=== PATIENT | female | born 1960 | race Two or more races ===

== ENCOUNTER 2020-02-10 11:53 | Emergency (ER) | payer OTHER ==
[~2020-02-10] VITALS: Ht 165.1 cm; Wt 104.3 kg
[2020-02-10] MEDS ORDERED: IOHEXOL 350 MG/ML 100ML IJ ONE ×2 (15:11→16:05)
[2020-02-10] MEDS ORDERED: MORPHINE SULFATE 4 MG/ML SYR/VIAL IV ONE (15:15)
[2020-02-10] MEDS ORDERED: ONDANSETRON HCL 4 MG/2 ML VIAL IV ONE (15:15)
[2020-02-10 15:23] LABS: Basophils # (auto) 0.1 10 ^3/uL (0-0.2); Basophils % (auto) 0.3 % (0.0-2.0); Eosinophils # (auto) 0 10 ^3/uL (0-0.8); Eosinophils % (auto) 0.1 % (0.0-7.0); Hematocrit 44.7 % (36.0-46.0); Hemoglobin 14.5 g/dL (12.2-16.2); Lymphocytes # (auto) 1.9 10 ^3/uL (0.4-5.4); Lymphocytes % (auto) 8.9 % (10.0-50.0); Mean Corpuscular Hemoglobin 30.1 pg (28.0-32.0); Mean Corpuscular Hgb Conc. 32.4 g/dL (32.0-36.0); Mean Corpuscular Volume 92.8 fL (80.0-100.0); Monocytes # (auto) 1.6 10 ^3/uL (0-1.3); Monocytes % (auto) 7.3 % (0.0-12.0); Neutrophils # (auto) 17.8 10 ^3/uL (1.6-8.6); Neutrophils % (auto) 83.4 % (37.0-80.0); Platelet Count (auto) 289 10^3/uL (140-450); Red Blood Cells 4.82 10^6/uL (4.0-5.20); Red Cell Distribution Width 13.2 % (11.8-14.3); White Blood Cell 21.3 10^3/uL (4.4-10.8)
[2020-02-10 15:44] LABS: Alanine Aminotransferase 74 U/L (13-56); Albumin 3.8 g/dL (3.4-5.0); Anion Gap 8 (5-15); Aspartate Aminotransferase 85 U/L (15-37); BUN/Creatinine Ratio 34.7; Blood Urea Nitrogen 26 mg/dL (7-18); Calcium 8.8 mg/dL (8.5-10.1); Carbon Dioxide 24 mmol/L (21-32); Chloride 108 mmol/L (98-107); GFR African American 102 mL/min; GFR Non-African American 84 mL/min; Glucose 119 mg/dL (74-106); INR 0.94 (0.9-1.15); Partial Thromboplastin Time 22.9 sec (23.0-31.2); Potassium 4.2 mmol/L (3.5-5.1); Sodium 140 mmol/L (136-145)
[2020-02-10 15:47] LABS: Alkaline Phosphatase 85 U/L (45-117); Bilirubin, Total 0.3 mg/dL (0.2-1.0); Total Protein 7.9 g/dL (6.4-8.2)
[2020-02-10] MEDS ORDERED: IOHEXOL 300 MG/ML 100ML BOTTLE IJ ONE (15:59)
[2020-02-10 17:52] VITALS: BP 114/83
== END 2020-02-10 18:02 | disposition short-term general hospital (02) ==
LOC: ER 11:53 → EDBD 11:53 → ER 18:02
DX: S82.831A Other fracture of upper and lower end of right fibula, initial encounter for closed fracture (principal); S82.51XA Displaced fracture of medial malleolus of right tibia, initial encounter for closed fracture; S22.43XA Multiple fractures of ribs, bilateral, initial encounter for closed fracture; J93.9 Pneumothorax, unspecified; J98.2 Interstitial emphysema; V49.40XA Driver injured in collision with unspecified motor vehicles in traffic accident, initial encounter; Y93.89 Activity, other specified; Y92.488 Other paved roadways as the place of occurrence of the external cause; Y99.8 Other external cause status
CPT/HCPCS: 36415; 71046; 71260; 72040; 73560; 73610; 74177; 80053; 83880; 84484; 85025; 85610; 85730; 93005; 93971; 96374; 96375; 99285; J2270; J2405; Q9967

== ENCOUNTER 2020-07-24 12:02 | Emergency (ER) | payer MEDICAID, OTHER ==
[~2020-07-24] VITALS: Ht 162.6 cm; Wt 81.6 kg
[2020-07-24 13:52] VITALS: BP 113/76
== END 2020-07-24 15:00 | disposition home or self-care (01) ==
LOC: EDBD 12:02 → ER 12:02
DX: S09.8XXA Other specified injuries of head, initial encounter (principal); M79.645 Pain in left finger(s); M25.551 Pain in right hip; W18.11XA Fall from or off toilet without subsequent striking against object, initial encounter; Y93.89 Activity, other specified; Y92.091 Bathroom in other non-institutional residence as the place of occurrence of the external cause; Y99.8 Other external cause status
CPT/HCPCS: 70450; 73130; 74176; 93005

== ENCOUNTER 2021-07-04 00:36 | Inpatient (IN) | payer MEDICAID ==
[~2021-07-04] VITALS: Ht 162.6 cm; Wt 89.4 kg
[2021-07-04 01:50] LABS: Basophils # (auto) 0 10 ^3/uL (0-0.2); Basophils % (auto) 0.3 % (0.0-2.0); Eosinophils # (auto) 0 10 ^3/uL (0-0.8); Eosinophils % (auto) 0.3 % (0.0-7.0); Hematocrit 38.8 % (36.0-46.0); Hemoglobin 12.9 g/dL (12.2-16.2); Lymphocytes # (auto) 1.1 10 ^3/uL (0.4-5.4); Lymphocytes % (auto) 9.3 % (10.0-50.0); Mean Corpuscular Hemoglobin 29.4 pg (28.0-32.0); Mean Corpuscular Hgb Conc. 33.2 g/dL (32.0-36.0); Mean Corpuscular Volume 88.7 fL (80.0-100.0); Monocytes # (auto) 0.7 10 ^3/uL (0-1.3); Monocytes % (auto) 5.7 % (0.0-12.0); Neutrophils # (auto) 9.8 10 ^3/uL (1.6-8.6); Neutrophils % (auto) 84.4 % (37.0-80.0); Nucleated Red Blood Cells % 0.1 %; Red Blood Cells 4.37 10^6/uL (4.0-5.20); Red Cell Distribution Width 13.9 % (11.8-14.3); White Blood Cell 11.6 10^3/uL (4.4-10.8)
[2021-07-04 02:11] LABS: Albumin 3.4 g/dL (3.4-5.0); Calcium 8.9 mg/dL (8.5-10.1); Potassium 3.7 mmol/L (3.5-5.1)
[2021-07-04] MEDS ORDERED: diazePAM 5 MG TAB PO ONE (02:15)
[2021-07-04 02:26] LABS: Bilirubin, Total 0.5 mg/dL (0.2-1.0); Total Protein 7.5 g/dL (6.4-8.2)
[2021-07-04] MEDS ORDERED: ONDANSETRON HCL 4 MG/2 ML VIAL IV PRN (05:00)
[2021-07-04] MEDS ORDERED: TEMAZEPAM 15 MG CAP PO PRN (05:00)
[2021-07-04] MEDS ORDERED: ACETAMINOPHEN 325 MG TAB PO PRN (05:00)
[2021-07-04 05:22] LABS: INR 0.99 (0.9-1.15); Partial Thromboplastin Time 26.5 sec (23.6-33.0)
[2021-07-04] MEDS: HYDROcodone-ACET 5/325MG TAB PO PRN (05:47)
[2021-07-04 05:59] LABS: BUN/Creatinine Ratio 38.1; Calcium 8.8 mg/dL (8.5-10.1); Potassium 3.8 mmol/L (3.5-5.1)
[2021-07-04] MEDS ORDERED: IOHEXOL 350 MG/ML 100ML IJ ONE (06:11)
[2021-07-04] MEDS: ENOXAPARIN SOD 100 MG/1 ML SYRINGE SC SCH ×2 (06:39→17:27)
[2021-07-04 10:48] VITALS: BP 118/70
[2021-07-04] MEDS: PANTOPRAZOLE 40 MG TAB PO SCH (11:00)
[2021-07-04 13:00] VITALS: BP 126/65
[2021-07-04 17:00] VITALS: BP 120/80
[2021-07-04 20:00] VITALS: BP 128/90
[2021-07-04 22:00] VITALS: BP 132/82
[2021-07-05] VITALS (7 sets, daily range): BP systolic 105–128; BP diastolic 65–90
[2021-07-05] MEDS: HYDROcodone-ACET 5/325MG TAB PO PRN ×3 (05:02→17:06)
[2021-07-05] MEDS: ENOXAPARIN SOD 100 MG/1 ML SYRINGE SC SCH ×2 (05:03→17:07)
[2021-07-05 05:19] LABS: Basophils # (auto) 0 10 ^3/uL (0-0.2); Basophils % (auto) 0.5 % (0.0-2.0); Eosinophils # (auto) 0.1 10 ^3/uL (0-0.8); Hematocrit 36.9 % (36.0-46.0); Lymphocytes # (auto) 1.8 10 ^3/uL (0.4-5.4); Lymphocytes % (auto) 19.7 % (10.0-50.0); Mean Corpuscular Hgb Conc. 35.2 g/dL (32.0-36.0); Mean Corpuscular Volume 88.3 fL (80.0-100.0); Monocytes # (auto) 0.7 10 ^3/uL (0-1.3); Monocytes % (auto) 7.6 % (0.0-12.0); Neutrophils # (auto) 6.7 10 ^3/uL (1.6-8.6); Neutrophils % (auto) 71.2 % (37.0-80.0); Red Blood Cells 4.18 10^6/uL (4.0-5.20); Red Cell Distribution Width 13.4 % (11.8-14.3); White Blood Cell 9.4 10^3/uL (4.4-10.8)
[2021-07-05] MEDS: PANTOPRAZOLE 40 MG TAB PO SCH (09:02)
[2021-07-06 05:00] VITALS: BP 115/69
[2021-07-06 06:14] LABS: Calcium 8.5 mg/dL (8.5-10.1); Potassium 3.6 mmol/L (3.5-5.1)
[2021-07-06] MEDS: ENOXAPARIN SOD 100 MG/1 ML SYRINGE SC SCH (06:46)
[2021-07-06 09:00] VITALS: BP_SYST 115; BP_SYST 135; BP_DIAS 80; BP_DIAS 88
[2021-07-06] MEDS: PANTOPRAZOLE 40 MG TAB PO SCH (10:23)
[2021-07-06] MEDS: HYDROcodone-ACET 5/325MG TAB PO PRN (10:27)
[2021-07-06] MEDS ORDERED: PANT40T PO (10:31)
[2021-07-06] MEDS ORDERED: APIX5TAB PO (10:31)
[2021-07-06 13:00] VITALS: BP 99/68
[2021-07-06 17:00] VITALS: BP 121/66
[2021-07-06] MEDS ORDERED: APIXABAN 5 MG TAB PO SCH (22:00)
[2021-07-13] MEDS ORDERED: APIXABAN 5 MG TAB PO SCH (22:00)
== END 2021-07-06 19:08 | disposition home health service (06) | DRG 197 ==
LOC: ER 00:36 → EDBD 00:36 → OVERFLOW 04:50 → CENTRAL 08:50
PROVIDERS: ADMIT Nurse Practitioner; ATTEND Internal Medicine
DX: I82.4Z2 Acute embolism and thrombosis of unspecified deep veins of left distal lower extremity (principal); D68.69 Other thrombophilia; F03.90 Unspecified dementia, unspecified severity, without behavioral disturbance, psychotic disturbance, mood disturbance, and anxiety; Z20.822 Contact with and (suspected) exposure to COVID-19; R79.89 Other specified abnormal findings of blood chemistry; E66.01 Morbid (severe) obesity due to excess calories; Z91.14 Patient's other noncompliance with medication regimen; Z68.33 Body mass index [BMI] 33.0-33.9, adult; Z95.828 Presence of other vascular implants and grafts
CPT/HCPCS: 36415; 71045; 71275; 80048; 80053; 84484; 85025; 85379; 85610; 85730; 93005; 93970; 96372; 97163; G0378

== ENCOUNTER 2022-06-14 22:09 | Emergency (ER) | payer MEDICAID ==
[~2022-06-14] VITALS: Ht 157.5 cm; Wt 78.8 kg
[~2022-06-14 22:09] MED LIST: APIX5TAB PO; PANT40T PO
[2022-06-15] MEDS ORDERED: levETIRAcetam 500 MG TAB PO ONE
[2022-06-15 00:22] LABS: Basophils # (auto) 0.1 10 ^3/uL (0-0.2); Basophils % (auto) 0.9 % (0.0-2.0); Eosinophils # (auto) 0.2 10 ^3/uL (0-0.8); Eosinophils % (auto) 2.1 % (0.0-7.0); Hematocrit 39.3 % (36.0-46.0); Mean Corpuscular Hemoglobin 30.5 pg (28.0-32.0); Mean Corpuscular Volume 92.4 fL (80.0-100.0); Monocytes # (auto) 0.7 10 ^3/uL (0-1.3); Monocytes % (auto) 6.9 % (0.0-12.0); Neutrophils # (auto) 6.7 10 ^3/uL (1.6-8.6); Neutrophils % (auto) 69.1 % (37.0-80.0); Nucleated Red Blood Cells % 0.1 %; Red Blood Cells 4.25 10^6/uL (4.0-5.20); White Blood Cell 9.7 10^3/uL (4.4-10.8)
[2022-06-15 00:45] LABS: Albumin 3.3 g/dL (3.4-5.0); BUN/Creatinine Ratio 43.5; Calcium 8.9 mg/dL (8.5-10.1); Potassium 3.6 mmol/L (3.5-5.1)
[2022-06-15] MEDS ORDERED: HYDROmorphone HCL 2 MG/ML VL/or syr IV ONE (00:45)
[2022-06-15] MEDS ORDERED: HYDROmorphone HCL 2 MG/ML VL/or syr IM ONE (00:45)
[2022-06-15 00:54] LABS: Bilirubin, Total 0.3 mg/dL (0.2-1.0); Total Protein 7.2 g/dL (6.4-8.2)
[2022-06-15 01:34] VITALS: BP 124/84
== END 2022-06-15 01:54 | disposition short-term general hospital (02) ==
LOC: ER 22:09
DX: S06.300A Unspecified focal traumatic brain injury without loss of consciousness, initial encounter (principal); S42.212A Unspecified displaced fracture of surgical neck of left humerus, initial encounter for closed fracture; W01.0XXA Fall on same level from slipping, tripping and stumbling without subsequent striking against object, initial encounter; Y93.89 Activity, other specified; Y92.89 Other specified places as the place of occurrence of the external cause; Y99.8 Other external cause status
CPT/HCPCS: 36415; 70450; 71045; 73030; 73060; 73070; 73090; 73110; 80053; 83690; 85025; 85610; 96374; 99285; J1170

== ENCOUNTER 2023-08-18 19:32 | Inpatient (IN) | payer MEDICAID ==
[~2023-08-18] VITALS: Ht 160 cm; Wt 68.8 kg
[2023-08-18 20:54] LABS: Basophils # (auto) 0.1 10 ^3/uL (0-0.2); Basophils % (auto) 0.8 % (0.0-2.0); Eosinophils # (auto) 0.1 10 ^3/uL (0-0.8); Eosinophils % (auto) 1.7 % (0.0-7.0); Hematocrit 50.8 % (36.0-46.0); Hemoglobin 16.2 g/dL (12.2-16.2); Lymphocytes # (auto) 2.2 10 ^3/uL (0.4-5.4); Lymphocytes % (auto) 26.9 % (10.0-50.0); Mean Corpuscular Hemoglobin 29.6 pg (28.0-32.0); Mean Corpuscular Hgb Conc. 31.9 g/dL (32.0-36.0); Mean Corpuscular Volume 92.8 fL (80.0-100.0); Monocytes # (auto) 0.5 10 ^3/uL (0-1.3); Monocytes % (auto) 6.4 % (0.0-12.0); Neutrophils # (auto) 5.4 10 ^3/uL (1.6-8.6); Neutrophils % (auto) 64.2 % (37.0-80.0); Nucleated Red Blood Cells % 0.1 %; Red Blood Cells 5.47 10^6/uL (4.0-5.20); Red Cell Distribution Width 15.2 % (11.8-14.3); White Blood Cell 8.3 10^3/uL (4.4-10.8)
[2023-08-18 21:09] LABS: Alanine Aminotransferase 38 U/L (7-40); Alkaline Phosphatase 84 U/L (46-116); Anion Gap 8 (5-15); Aspartate Aminotransferase 30 U/L (13-40); BUN/Creatinine Ratio 39.5 (10.0-20.0); Blood Alcohol 4.2 mg/dL (<10); Blood Urea Nitrogen 34 mg/dL (9-23); Calcium 9.9 mg/dL (8.5-10.1); Carbon Dioxide 29 mmol/L (20-30); Chloride 125 mmol/L (98-107); Glucose 102 mg/dL (74-106); Magnesium 2.7 mg/dL (1.6-2.6); Potassium 3.7 mmol/L (3.5-5.1)
[2023-08-18 21:10] LABS: Albumin 4.5 g/dL (3.2-4.8); Bilirubin, Total 0.6 mg/dL (0.2-1.0); Total Protein 7.8 g/dL (5.7-8.2)
[2023-08-18 21:13] LABS: INR 1.15 (0.9-1.15); Partial Thromboplastin Time 22.7 SEC (24.5-34.5); Prothrombin Time 12.1 sec (9.3-11.8)
[2023-08-18 21:26] LABS: Sodium 162 mmol/L (136-145)
[2023-08-18] MEDS ORDERED: SODIUM CHLORIDE 0.9% 1,000 ML IV ONE ×2 (22:00)
[2023-08-18] MEDS ORDERED: DOCUSATE SOD 100 MG CAP PO PRN (22:45)
[2023-08-18] MEDS ORDERED: ACETAMINOPHEN 325 MG TAB PO PRN (22:45)
[2023-08-18] MEDS ORDERED: ONDANSETRON HCL 4 MG/2 ML VIAL IV PRN (22:45)
[2023-08-18] MEDS ORDERED: NITROGLYCERIN 0.4 MG SL TAB SL PRN (22:45)
[2023-08-18] MEDS ORDERED: HYDROcodone-ACET 5/325MG TAB PO PRN (22:45)
[2023-08-18] MEDS ORDERED: MORPHINE SULFATE INJ 2 MG/ml SYRG IV PRN ×2 (22:45)
[2023-08-18] MEDS: SOD CHL 0.45% 1,000 ML IV SCH (23:22)
[2023-08-19] VITALS (17 sets, daily range): BP systolic 92–137; BP diastolic 59–82; PULSE 52–86; RESP 8–17; TEMP 97.6–98.4; O2SAT 78–99
[2023-08-19 00:02] LABS: Amphetamine Screen, Urine Neg (NEGATIVE); Barbiturate Scree,Urine Neg (NEGATIVE); Benzodiazephine Screen, Urine Neg (NEGATIVE); Cocaine Screen, Urine Neg (NEGATIVE); Urine Amorphous Crystal FEW /hpf (None Seen); Urine Bacteria MANY /hpf (None Seen); Urine Blood Negative /uL (Negative); Urine Clarity Turbid (Clear); Urine Color Yellow (Yellow); Urine Mucus MANY (None Seen); Urine Protein, UAD 1+ (Negative); Urine Specific Gravity 1.033 (1.001-1.035); Urine Urobilinogen Normal (Negative); Urine WBC 6 /hpf (0 - 5); Urine pH 5.5 (5.0-9.0)
[2023-08-19 00:03] LABS: Cannabinoid Screen, Urine Neg (NEGATIVE); Opiate Scree,Urine Neg (NEGATIVE); Phencyclidine Screen, Urine Neg (NEGATIVE)
[2023-08-19 05:04] LABS: Hemoglobin 15.2 g/dL (12.2-16.2); Mean Corpuscular Hemoglobin 29.4 pg (28.0-32.0); Mean Corpuscular Hgb Conc. 31.1 g/dL (32.0-36.0); Mean Corpuscular Volume 94.8 fL (80.0-100.0); Red Blood Cells 5.18 10^6/uL (4.0-5.20); Red Cell Distribution Width 15.9 % (11.8-14.3); White Blood Cell 10.1 10^3/uL (4.4-10.8)
[2023-08-19 05:07] LABS: Band Neutrophils % (manual) 0; Basophils % (manual) 0 (0.0-2.0); Blast Cells 0; Metamyelocytes % 0; Myelocytes % 0; Promyelocytes % 0; Reactive Lymphocytes 0
[2023-08-19 05:18] LABS: Alanine Aminotransferase 31 U/L (7-40); Albumin 3.9 g/dL (3.2-4.8); Alkaline Phosphatase 75 U/L (46-116); Anion Gap 9 (5-15); Aspartate Aminotransferase 23 U/L (13-40); BUN/Creatinine Ratio 45.3 (10.0-20.0); Bilirubin, Total 0.9 mg/dL (0.2-1.0); Blood Urea Nitrogen 34 mg/dL (9-23); Calcium 9.4 mg/dL (8.7-10.4); Carbon Dioxide 29 mmol/L (20-30); Chloride 124 mmol/L (98-107); Glucose 99 mg/dL (74-106); Potassium 3.7 mmol/L (3.5-5.1); Total Protein 7.1 g/dL (5.7-8.2)
[2023-08-19 05:21] LABS: Free T3 2.73 pg/mL (2.3-4.2); Free T4 (Free Thyroxine) 1.13 ng/dL (0.89-1.76)
[2023-08-19 05:28] LABS: Sodium 162 mmol/L (136-145)
[2023-08-19] MEDS: D5W/SOD CHL 0.45% 1,000 ML IV SCH ×2 (08:00→13:20)
[2023-08-19 08:12] LABS: Eosinophils % (manual) 2 (0-7); Lymphocytes % (manual) 30 (10.0-50.0); Monocytes % (manual) 3 (0-12); Platelet Estimate Adequate
[2023-08-19] MEDS ORDERED: CHOL20007 PO (08:28)
[2023-08-19] MEDS ORDERED: LEVE500T40 PO (08:28)
[2023-08-19] MEDS ORDERED: SIMV20TA20 PO (08:28)
[2023-08-19 08:33] LABS: Chloride 125 mmol/L (98-107); Sodium 159 mmol/L (136-145)
[2023-08-19 08:34] LABS: Anion Gap 5 (5-15); Carbon Dioxide 29 mmol/L (20-30)
[2023-08-19 08:39] LABS: Glucose 96 mg/dL (74-106)
[2023-08-19 08:41] LABS: Potassium 5.2 mmol/L (3.5-5.1)
[2023-08-19 08:42] LABS: BUN/Creatinine Ratio 35.8 (10.0-20.0); Blood Urea Nitrogen 29 mg/dL (9-23)
[2023-08-19 08:48] LABS: Creatinine, Urine 258.75 mg/dL (30.0-125.0)
[2023-08-19] MEDS: PANTOPRAZOLE 40 MG/10 ML VIAL INJ IV SCH (10:24)
[2023-08-19] MEDS: levETIRAcetam 500 MG TAB PO ONE (11:17)
[2023-08-19] MEDS: ENOXAPARIN SOD 40 MG/0.4 ML SYRINGE SC ONE (11:17)
[2023-08-19 11:50] LABS: Chloride 126 mmol/L (98-107); Potassium 3.6 mmol/L (3.5-5.1); Sodium 160 mmol/L (136-145)
[2023-08-19 11:51] LABS: Anion Gap 6 (5-15); Calcium 9.1 mg/dL (8.5-10.1); Carbon Dioxide 28 mmol/L (20-30)
[2023-08-19 11:56] LABS: BUN/Creatinine Ratio 36.6 (10.0-20.0); Blood Urea Nitrogen 26 mg/dL (9-23); Glucose 153 mg/dL (74-106)
[2023-08-19] MEDS: cefTRIAXone 1GM/50ML D5W 50 ML IV ONE (14:18)
[2023-08-19] MEDS: D5W 5% 1,000 ML IV SCH (14:18)
[2023-08-19 19:52] LABS: Chloride 121 mmol/L (98-107); Sodium 156 mmol/L (136-145)
[2023-08-19 19:53] LABS: Anion Gap 5 (5-15); Carbon Dioxide 30 mmol/L (20-30)
[2023-08-19 19:54] LABS: Calcium 8.6 mg/dL (8.5-10.1)
[2023-08-19 19:58] LABS: Glucose 129 mg/dL (74-106)
[2023-08-19 19:59] LABS: BUN/Creatinine Ratio 35.9 (10.0-20.0); Blood Urea Nitrogen 23 mg/dL (9-23)
[2023-08-19] MEDS: levETIRAcetam 500 MG TAB PO SCH (21:30)
[2023-08-19] MEDS: POTASSIUM CHL 20MEQ/100ML 100 ML IV SCH (22:07)
[2023-08-20] VITALS (9 sets, daily range): BP systolic 97–108; BP diastolic 65–73; PULSE 48–72; RESP 16–18; TEMP 97.3–98.5; O2SAT 91–98
[2023-08-20 01:04] LABS: Chloride 120 mmol/L (98-107); Potassium 3.8 mmol/L (3.5-5.1); Sodium 153 mmol/L (136-145)
[2023-08-20 01:05] LABS: Anion Gap 7 (5-15); Calcium 8.7 mg/dL (8.7-10.4); Carbon Dioxide 26 mmol/L (20-30)
[2023-08-20 01:10] LABS: BUN/Creatinine Ratio 34.4 (10.0-20.0); Blood Urea Nitrogen 21 mg/dL (9-23); Glucose 109 mg/dL (74-106)
[2023-08-20] MEDS: cefTRIAXone 1GM/50ML D5W 50 ML IV SCH (09:00)
[2023-08-20] MEDS: ENOXAPARIN SOD 40 MG/0.4 ML SYRINGE SC SCH (09:38)
[2023-08-20 09:39] LABS: Albumin 3.4 g/dL (3.2-4.8); Alkaline Phosphatase 63 U/L (46-116); Anion Gap 4 (5-15); Aspartate Aminotransferase 58 U/L (13-40); Calcium 8.5 mg/dL (8.5-10.1); Carbon Dioxide 27 mmol/L (20-30); Chloride 120 mmol/L (98-107); Glucose 88 mg/dL (74-106); Magnesium 2.1 mg/dL (1.6-2.6); Sodium 151 mmol/L (136-145)
[2023-08-20 09:40] LABS: Bilirubin, Total 0.7 mg/dL (0.2-1.0); Phosphorus 2.7 mg/dL (2.4-5.1); Total Protein 6.1 g/dL (5.7-8.2)
[2023-08-20 09:42] LABS: Alanine Aminotransferase 36 U/L (7-40); BUN/Creatinine Ratio 19.4 (10.0-20.0); Blood Urea Nitrogen 13 mg/dL (9-23); Potassium 4.4 mmol/L (3.5-5.1)
[2023-08-20] MEDS ORDERED: D5W 5% 1,000 ML IV SCH (12:15)
[2023-08-20 12:25] LABS: Basophils # (auto) 0.1 10 ^3/uL (0-0.2); Basophils % (auto) 0.7 % (0.0-2.0); Eosinophils # (auto) 0.2 10 ^3/uL (0-0.8); Eosinophils % (auto) 2.6 % (0.0-7.0); Hemoglobin 14.4 g/dL (12.2-16.2); Lymphocytes # (auto) 2.4 10 ^3/uL (0.4-5.4); Lymphocytes % (auto) 27.4 % (10.0-50.0); Mean Corpuscular Hemoglobin 29.3 pg (28.0-32.0); Mean Corpuscular Hgb Conc. 30.5 g/dL (32.0-36.0); Mean Corpuscular Volume 96.1 fL (80.0-100.0); Monocytes # (auto) 0.6 10 ^3/uL (0-1.3); Monocytes % (auto) 6.7 % (0.0-12.0); Neutrophils # (auto) 5.5 10 ^3/uL (1.6-8.6); Neutrophils % (auto) 62.6 % (37.0-80.0); Nucleated Red Blood Cells % 0.1 %; White Blood Cell 8.7 10^3/uL (4.4-10.8)
[2023-08-20] MEDS: D5W 5% 1,000 ML IV SCH (14:15)
[2023-08-21] VITALS (7 sets, daily range): BP systolic 92–100; BP diastolic 57–73; PULSE 59–91; RESP 17–20; TEMP 97.7–98.8; O2SAT 95–97
[2023-08-21 07:06] LABS: RPR Non Reactive (Non Reactive)
[2023-08-21 10:37] LABS: Basophils # (auto) 0 10 ^3/uL (0-0.2); Basophils % (auto) 0.4 % (0.0-2.0); Eosinophils # (auto) 0.1 10 ^3/uL (0-0.8); Eosinophils % (auto) 1.5 % (0.0-7.0); Hematocrit 39.7 % (36.0-46.0); Hemoglobin 12.9 g/dL (12.2-16.2); Lymphocytes # (auto) 1.5 10 ^3/uL (0.4-5.4); Lymphocytes % (auto) 16.9 % (10.0-50.0); Mean Corpuscular Hemoglobin 29.6 pg (28.0-32.0); Mean Corpuscular Hgb Conc. 32.6 g/dL (32.0-36.0); Mean Corpuscular Volume 90.9 fL (80.0-100.0); Monocytes # (auto) 0.3 10 ^3/uL (0-1.3); Monocytes % (auto) 3.5 % (0.0-12.0); Neutrophils # (auto) 6.9 10 ^3/uL (1.6-8.6); Neutrophils % (auto) 77.7 % (37.0-80.0); Nucleated Red Blood Cells % 0.1 %; Red Blood Cells 4.37 10^6/uL (4.0-5.20); Red Cell Distribution Width 14.3 % (11.8-14.3); White Blood Cell 8.9 10^3/uL (4.4-10.8)
[2023-08-21 10:43] LABS: Chloride 112 mmol/L (98-107); Potassium 3.3 mmol/L (3.5-5.1); Sodium 148 mmol/L (136-145)
[2023-08-21 10:44] LABS: Anion Gap 6 (5-15); Calcium 8.9 mg/dL (8.7-10.4); Carbon Dioxide 30 mmol/L (20-30)
[2023-08-21 10:49] LABS: BUN/Creatinine Ratio 19.6 (10.0-20.0); Blood Urea Nitrogen 11 mg/dL (9-23); Glucose 104 mg/dL (74-106)
[2023-08-21 10:50] LABS: Magnesium 1.9 mg/dL (1.6-2.6)
[2023-08-21] MEDS: POTASSIUM CHL 20MEQ/100ML 100 ML IV ONE (11:45)
[2023-08-21] MEDS: POTASSIUM CHL 20 Meq TABLET PO ONE (15:54)
[2023-08-21] MEDS: LACTULOSE 20Gm/30ML SOLN PO ONE (15:54)
[2023-08-21] MEDS: DOCUSATE ORAL LIQUID 100 MG/10 ML UD PO ONE (22:00)
[2023-08-22 01:00] VITALS: BP 106/73; PULSE 61; RESP 16; TEMP 98.7; O2SAT 95
[2023-08-22 05:00] VITALS: BP 129/68; PULSE 60; RESP 16; TEMP 98.1; O2SAT 94
[2023-08-22 07:34] LABS: Chloride 113 mmol/L (98-107); Potassium 3.7 mmol/L (3.5-5.1); Sodium 147 mmol/L (136-145)
[2023-08-22 07:35] LABS: Anion Gap 5 (5-15); Calcium 9.1 mg/dL (8.5-10.1); Carbon Dioxide 29 mmol/L (20-30)
[2023-08-22 07:40] LABS: BUN/Creatinine Ratio 14.5 (10.0-20.0); Blood Urea Nitrogen 8 mg/dL (9-23); Glucose 93 mg/dL (74-106)
[2023-08-22 07:41] LABS: Magnesium 2.1 mg/dL (1.6-2.6)
[2023-08-22 08:51] VITALS: BP 120/77; PULSE 62; RESP 16; TEMP 98.2; O2SAT 97
[2023-08-22 13:00] VITALS: BP 107/69; PULSE 66; RESP 17; TEMP 97.7; O2SAT 95
== END 2023-08-22 16:55 | disposition home health service (06) | DRG 426 ==
LOC: ER 19:32 → EDBD 19:32 → TELE 22:49 → DOU IN ICU 08-19 09:24 → TELE-WESTW 08-19 17:57
PROVIDERS: ADMIT Internal Medicine; ATTEND Emergency Medicine
DX: E87.0 Hyperosmolality and hypernatremia (principal); G93.41 Metabolic encephalopathy; E86.0 Dehydration; E86.1 Hypovolemia; F03.90 Unspecified dementia, unspecified severity, without behavioral disturbance, psychotic disturbance, mood disturbance, and anxiety; E87.1 Hypo-osmolality and hyponatremia; N39.0 Urinary tract infection, site not specified; E78.5 Hyperlipidemia, unspecified; B96.20 Unspecified Escherichia coli [E. coli] as the cause of diseases classified elsewhere; E87.6 Hypokalemia; Z86.718 Personal history of other venous thrombosis and embolism; Z86.73 Personal history of transient ischemic attack (TIA), and cerebral infarction without residual deficits; Z79.2 Long term (current) use of antibiotics; Z79.899 Other long term (current) drug therapy; Z80.8 Family history of malignant neoplasm of other organs or systems; Z85.841 Personal history of malignant neoplasm of brain
CPT/HCPCS: 36415; 70450; 71045; 80048; 80053; 80307; 80320; 81001; 82306; 82570; 82607; 83605; 83735; 83930; 83935; 83970; 84100; 84133; 84300; 84439; 84443; 84481; 84484; 85007; 85025; 85027; 85610; 85730; 86592; 87081; 87086; 87088; 87186; 92610; 93005; 96360; 96361; 97163; C9113; G0378; J3480